=== PATIENT | female | born 2000 | race Caucasian/White ===

== ENCOUNTER 2020-12-27 21:28 | Emergency (ER) | payer SELFPAY ==
[~2020-12-27] VITALS: Ht 152.4 cm; Wt 77.1 kg
[2020-12-27 21:30] VITALS: BP_SYST 158
--- NOTE | 2020-12-27 21:30 | NUR ---
Placed in room 1 . Placed on property assessment monitor, blood pressure machine and pulse oximeter. To gown for exam. Side rails up. Report given to ZAHRA DODGE.
--- NOTE | 2020-12-27 21:50 | NUR ---
DR BLACK IN TO ASSESS
--- NOTE | 2020-12-27 21:52 | NUR ---
up ambulating to bath with assistance, back to bed w/out incident
--- NOTE | 2020-12-27 22:02 | NUR ---
RESTLESS, CONFUSED, DIFFICULTY FOLLOWING COMMANDS. RESP UNLABORED. SKIN WARM AND DRY.
--- NOTE | 2020-12-27 22:06 | NUR ---
Called Poison Control at [phone] and spoke with AMID. Per recommendations: TYLENOL,ASPIRIN,CMP/LIVER FXN,INR. IF ELEVATED ACETYLCYSTINE.NARCAN FOR RESP DEPRESSION Dr. HANNA notified. Will continue to monitor patient.
[2020-12-27 22:12] LABS: BASOPHILS % (AUTO) 0.2 % (0.0-2.0); EOSINOPHILS # (AUTO) 0.1 K/uL (0.0-0.4); EOSINOPHILS % (AUTO) 0.7 % (0.0-4.0); HEMATOCRIT 40.3 % (36-48); LYMPHOCYTES # (AUTO) 3.1 K/uL (1.0-5.5); LYMPHOCYTES % (AUTO) 29.8 % (20.5-51.5); MEAN CORPUSCULAR HEMOGLOBIN 31 pg (27-31); MEAN CORPUSCULAR HGB CONC 35 % (32-36); MEAN CORPUSCULAR VOLUME 88 fL (79.0-98.0); MONOCYTES # (AUTO) 0.7 K/uL (0.0-1.0); MONOCYTES % (AUTO) 6.9 % (1.7-9.3); NEUTROPHILS # (AUTO) 6.6 K/uL (1.8-7.7); NEUTROPHILS % (AUTO) 62.4 % (40.0-70.0); PLATELET COUNT (AUTO) 331 K/uL (130-430); RED BLOOD CELL COUNT(AUTO) 4.59 MIL/uL (4.2-6.2); RED CELL DISTRIBUTION WIDTH 12.6 % (9.0-15.0); WHITE BLOOD COUNT (AUTO) 10.6 K/uL (4.5-11.0)
--- NOTE | 2020-12-27 22:22 | NUR ---
DR HANNA AT BEDSIDE
[2020-12-27 22:26] LABS: ALANINE AMINOTRANSFERASE 21 U/L (12-78); ALBUMIN 4.2 g/dL (3.4-4.8); ASPARTATE AMINOTRANSFERASE 19 U/L (10-37); CALCIUM 9.3 mg/dL (8.4-11.0); CHLORIDE 104 mmol/L (98-107); GLUCOSE 102 mg/dL (70-99); POTASSIUM 3.6 mmol/L (3.5-5.1); SODIUM SERUM 141 mmol/L (136-145); TOTAL BILIRUBIN 0.4 mg/dL (0.0-1.0); UREA NITROGEN, BLOOD 12 mg/dL (8-21)
[2020-12-27 22:31] LABS: ACETAMINOPHEN < 1 ug/mL (1-30); ALCOHOL, BLOOD < 3 mg/dL (<10); GFR AFRICAN AMERICAN 118 mL/min (>90)
[2020-12-27 22:37] LABS: ANION GAP 12 (5-15)
--- NOTE | 2020-12-28 00:20 | NUR ---
UPDATE TO POISON CONTROL. NO CONCERNS. VSS
--- NOTE | 2020-12-28 03:55 | NUR ---
UP TO BATHROOM, STEADY GAIT, RESP UNLABORED, CLEAR MENTATION AND SPEECH
--- NOTE | 2020-12-28 04:50 | NUR ---
CALM, ALERT, EASILY AROUSED, RESP UNLABORED, DENIES CP/SOB. SKIN WARM AND DRY
[2020-12-28] MEDS ORDERED: NALO4SPR NS (06:12)
--- NOTE | 2020-12-28 06:20 | NUR ---
Patient given written and verbal discharge instructions and verbalizes understanding. ER MD discussed with patient the results and treatment provided. Patient in stable condition. ID arm band removed. IV catheter removed intact and dressing applied, no active bleeding. Patient educated on pain management and to follow up with PMD. Pain Scale . Opportunity for questions provided and answered.
[2020-12-28 06:38] VITALS: BP_SYST 112
== END 2020-12-27 21:30 | disposition home or self-care (01) ==
LOC: SED 21:28
DX: T42.4X1A Poisoning by benzodiazepines, accidental (unintentional), initial encounter (principal); T40.2X1A Poisoning by other opioids, accidental (unintentional), initial encounter; Y92.89 Other specified places as the place of occurrence of the external cause
CPT/HCPCS: 36415; 80053; 85025; 99285; G0480; G0481; G0482